=== PATIENT | male | born 1940 | race Caucasian/White ===

== ENCOUNTER 2016-11-30 11:48 | Observation (INO) | payer MEDICARE, OTHER ==
[2016-11-30 12:50] LABS: ALT (SGPT) 176 U/L (8-55); AST (SGOT) 144 U/L (5-34); Alkaline Phosphatase 178 U/L (40-150); Anion Gap 12 mmol/L (10-20); BUN (Urea Nitrogen) 21 mg/dL (8.4-25.7); Bilirubin, Total 4.4 mg/dL (0.2-1.2); Calc. Creatinine Clearance 0 mL/min (70-130); Calcium 8.1 mg/dL (7.8-10.44); Carbon Dioxide 22 mmol/L (23-31); Chloride 108 mmol/L (98-107); Estimated GFR-MDRD Greater than 90; Globulin 2.1 g/dL (2.4-3.5); Protein, Total 5.5 g/dL (5.8-8.1)
[2016-11-30 13:01] LABS: #Eosinphils 0.1 thou/uL (0.0-0.7); #Lymphocytes 0.1 thou/uL (1.20-3.40); #Monocytes 0.5 thou/uL (0.11-0.59); #Neutrophils 7.3 thou/uL (1.40-6.50); %Basophils 0.4 % (0.0-1.0); %Eosinophils 1.1 % (0.0-10.0); %Lymphocytes 1.7 % (21.0-51.0); %Monocytes 6.2 % (0.0-10.0); Hematocrit 40.1 % (42.0-52.0); Mean Platelet Volume 9.2 fL (7.4-10.4); Red Blood Cell (RBC) Count 4.79 mill/uL (4.70-6.10); White Blood Cell (WBC) Count 8.1 thou/uL (4.8-10.8)
--- NOTE | 2016-11-30 13:58 | RAD ---
RADIOGRAPH CHEST 2 VIEWS: Date: 11/30/16 Time: 1247 HOURS HISTORY: 76-year-old male with chest pain, weakness, nausea, and chills. COMPARISON: None. FINDINGS: There is a smooth bulge in the right mediastinal border. Thoracic aorta is tortuous. Cardiac size is normal. No pleural effusion or pneumothorax. Faint nodular interstitial densities scattered through out bilateral lung bruno, nonspecific. No consolidation or pulmonary edema. No pneumothorax or pleu ral effusion. IMPRESSION: 1. Widening of the right mediastinum. This is nonspecific. 2. Consider CT of the chest with contrast to rule out right mediastinal mass. MARK [] POS: [facility]
[2016-11-30 14:49] LABS: Bilirubin Large (Negative); Blood, Urine Negative (Negative); Glucose, Urine (Dipstick) Negative (Negative); Ketone, Urine Trace mg/dL (Negative); Nitrite Positive (Negative); Protein, Urine (Dipstick) 30 mg/dL (Neg-Trace)
[2016-11-30 14:50] LABS: Bacteria/HPF None Seen HPF (None Seen); Hyaline Casts/LPF 0-3 HYALINE CAST LPF (0-3 Hyaline); RBC/HPF 0-3 HPF (0-3); Squamous Epithelial 0-3 HPF (0-3); WBC/HPF 0-3 HPF (0-3)
[2016-11-30 14:53] LABS: Troponin I 0.033 ng/mL (< 0.028)
[2016-11-30] MEDS ORDERED: cefTRIAXone\\ROCEPHIN 2 GM VIAL ONE (15:54)
[2016-11-30] MEDS ORDERED: Sodium Chloride 0.9% 0 ML ONE (15:55)
[2016-11-30] MEDS ORDERED: Sodium Chloride 0.9% 100 ML ONE (15:58)
[2016-11-30] MEDS ORDERED: ISOVUE-370 76%-LOCM 1 ML ONE (16:33)
--- NOTE | 2016-11-30 16:39 | CT ---
CTA CHEST WITH 3D VOLUME RENDERING: Date: 11/30/16 INDICATION: Chest pain. No prior imaging for comparison. FINDINGS: There is diffuse heterogeneity of the contrast bolus, which does limit sensitivity evaluation and co uld obscure pulmonary emboli. Marked density reduction of the bilateral segmental and subsegmental p ulmonary arterial branches precludes assessment within these regions. There are mild bilateral subpleural patchy densities which may be on the basis of volume loss. Granu lomatous calcification present. There is atherosclerotic vascular disease. There is heterogeneity an d enlargement of the thyroid gland with punctate calcification. There is mild hiatal hernia. IMPRESSION: Limited evaluation due to heterogeneity of contrast bolus. There is no definite large central pulmon migue embolus. Evaluation otherwise limited. POS: [facility]
[2016-11-30 16:51] LABS: Troponin I 0.062 ng/mL (< 0.028)
--- NOTE | 2016-11-30 16:57 | ULT ---
GALLBLADDER ULTRASOUND: 11/30/16 INDICATION: Abdominal pain with elevation of liver function enzymes. FINDINGS: Prominent size of the hepatic volume at 20 cm in length. Portions of the liver are obscured by persi stent bowel limiting assessment. No ascites of significance visualized. No acute gallbladder pathology. Mensah's sign report is negative. Gallbladder wall measures less román n 3 mm, which is within normal limits in size. The common duct measures 3 mm, within normal limits. IMPRESSION: 1. Prominent sized liver with portions obscured by persistent bowel content. 2. No acute gallbladder pathology. POS: [facility]
[2016-11-30] MEDS ORDERED: cloNIDine HCl 0.1 MG TAB PO PRN (17:57)
[2016-11-30] MEDS ORDERED: Ondansetron HCl/PF 4 MG/2 ML Vial IVP PRN (17:57)
[2016-11-30] MEDS ORDERED: Sodium Chloride 0.9% 1,000 ML IV SCH (17:57)
[2016-11-30] MEDS ORDERED: Ondansetron ODT 4 MG TAB PO PRN (17:57)
[2016-11-30] MEDS ORDERED: Acetaminophen 500 MG TAB PO PRN (17:57)
[2016-11-30 18:19] VITALS: BMI 36.9
[2016-11-30] MEDS: Sodium Chloride 0.9% 1,000 ML IV SCH (19:53)
[2016-11-30] MEDS: Famotidine 20 MG TAB PO SCH (19:59)
--- NOTE | 2016-12-01 02:55 | HP ---
DATE OF ADMISSION: 11/30/2016 PRIMARY CARE PHYSICIAN: Formally, Dr. Mayer in [facility], also [facility] in [place], [place]. CHIEF COMPLAINT: General weakness and shaking chills. HISTORY OF PRESENT ILLNESS: This is a 76-year-old male who presents to [facility] complaining of 2-3 day history of increasing weakness, shaking chills, and dark urin e. The patient states he noticed symptoms within the last 48-72 hours with some associated nausea a nd chills. The patient denies any specific emesis, travel history, recent trauma, injury, or docume nted fever. The patient did state that approximately 2 weeks prior to this evaluation, he underwent a left ear procedure requiring surgical intervention and packing of the ear. The patient states he was given antibiotic drops and oral antibiotics after the surgical procedure. The patient denies a ny specific increased left ear discomfort, drainage, or epistaxis. The patient also admitted to [facility] without change to bowel regimen, diarrhea, or travel history. The patient admits a poor or al intake over the last 72 hours, drinking mainly coffee instead of water. The patient did note sarai kness to his urine, but no malodorous discharge. The patient denies any prior history of urinary tr act infections but does state he has prostate enlargement, placed on an alpha-el. The patient denies any known history of coronary artery disease or personal history of hypertension. In the [facility] department, the patient underwent general evaluation including chest imaging showing no acute infiltrate. CT angiogram of the chest was performed after initial D-dimer was elevated over 1 show ing a limited evaluation with contrast bolus; however, no definite large central pulmonary emboli no sally. The patient also underwent a general evaluation with abdominal ultrasound imaging after metabo lic screening showed transaminitis of unclear etiology. The sonographic evaluation showed a promine nt-sized liver without acute gallbladder pathology. The patient received aspirin 324 mg in addition to Rocephin 2 grams x1 dose after concern for a possible urinary tract infection. PAST MEDICAL HISTORY: 1. Gastroesophageal reflux disease. 2. Benign prostatic hyperplasia. PAST SURGICAL HISTORY: Status post left ear surgery. CURRENT MEDICATIONS: 1. Dexilant 30 mg p.o. b.i.d. 2. Naprosyn 500 mg p.o. b.i.d. 3. Alpha-el, type unknown. ALLERGIES: PRILOSEC. FAMILY HISTORY: No inheritable diseases per the patient report. SOCIAL HISTORY: , residing in the [facility]. No current alcohol, tobacco, or ill icit drug use. 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 A of [employer]. REVIEW OF SYSTEMS: The following complete review of systems was negative, unless otherwise mentione d in the HPI or below: Constitutional: Weight loss or gain, ability to conduct usual activities. Skin: Rash, itching. Eyes: Double vision, pain. ENT/Mouth: Nose bleeding, neck stiffness, pain, tenderness. Cardiovascular: Palpitations, dyspnea on exertion, orthopnea. Respiratory: Shortnes s of breath, wheezing, cough, hemoptysis, fever or night sweats. Gastrointestinal: Poor appetite, abdominal pain, heartburn, nausea, vomiting, constipation, or diarrhea. Genitourinary: Urgency, fr equency, dysuria, nocturia. Musculoskeletal: Pain, swelling. Neurologic/Psychiatric: Anxiety, de pression. Allergy/Immunologic: Skin rash, bleeding tendency. Otherwise negative except as stated per HPI. PHYSICAL EXAMINATION: VITAL SIGNS: On admission, blood pressure 125/61, pulse 74, respiratory rate 18, temperature 98.1 d egrees Fahrenheit, O2 saturation 98% on room air. GENERAL APPEARANCE: This is a 76-year-old male, alert and oriented x3, pleasant, conversa nt, in no acute distress. HEENT: Pupils are equal, round, and reactive to light and accommodation. Extraocular muscles are i ntact. No scleral icterus, no conjunctival injection. Nares patent. OP is clear. Teeth in fair r epair. NECK: Supple, no cervical adenopathy, no thyromegaly, no carotid bruits, no JVD appreciated. Cervi trenton spine with full active and passive range of motion. CHEST: Lungs are clear to auscultation bilaterally. CARDIOVASCULAR: S1, S2, without noted murmur. ABDOMEN: Rounded, soft, nontender, nondistended. Bowel sounds are positive in all four quadrants. There is no hepatosplenomegaly, no abdominal bruits, no rebound or guarding appreciated. EXTREMITIES: Warm and dry with fair turgor. No clubbing, cyanosis, or asymmetric edema appreciated . Pulses palpable distally at the dorsalis pedis, posterior tibial, and popliteal arteries bilatera lly. Capillary refill is less than 2 seconds. NEUROLOGIC: Cranial nerves II through XII are grossly intact. No focal or lateralizing signs appre ciated. PERTINENT LABORATORY AND X-RAY FINDINGS: Sodium 138, potassium 3.6, chloride 108, CO2 of 22, BUN 21 , creatinine 0.82, glucose 84, calcium 8.1, total bilirubin 4.4, AST 144, ALT 176, alkaline phosphat ase 178. Total CK 121, troponin I 0.033-0.062. Albumin 3.4. CBC showed a white blood cell count o f 8.1, hemoglobin 12.7, hematocrit 40.1, platelet count 108 with 91% neutrophilia. D-dimer 1.42. U rinalysis dated 11/30/2016 showed trace ketones, positive nitrite, small leukocyte esterase with 0-3 wbc's and rbc's per high-powered field. Portable chest x-ray dated 11/30/2016 showed questionable widening of the right mediastinum, nonspecific. No acute infiltrate identified. CT angiogram of th e chest dated 11/30/2016 showed limited evaluation due to contrast bolus timing with no definite lar ge central pulmonary emboli. Abdominal ultrasound dated 11/30 2016 showed prominent-sized liver wit hout acute process. No gallbladder pathology identified. EKG dated 11/30/2016 by my interpretation shows sinus mechanism with heart rates in the 80s, normal R-wave progression on the precordial lead s. Left axis deviation. No acute ST-T wave changes appreciated. ASSESSMENT AND PLAN: 1. Generalized weakness. The patient will be observed on the telemetry unit. Exact etiology is un clear. Continue symptomatic and supportive measures. Check TSH, magnesium, and BNP level. Initiat e normal saline at 125 mL per hour. 2. Question of urinary tract infection. Await final urine culture results. Initial management wit h Rocephin 2 grams IV x1 dose in the emergency room. 3. Transaminitis with hyperbilirubinemia. Etiology unclear. Check lipase level. Check acute hepa titis A, B, and C panel. Repeat LFTs in the a.m. 4. Elevated troponin I. We will continue to serially monitor troponin I. Check 2D transthoracic e chocardiogram in the a.m. Check BNP level. 5. Thrombocytopenia, mild. We will repeat platelet count in the a.m. Avoid anticoagulation. 6. Gastroesophageal reflux. Continue Pepcid 20 mg p.o. b.i.d. 7. Dehydration. See generalized weakness above. Continue intravenous normal saline as outlined pr eviously. 8. Prophylaxis. Sequential compression devices while in bed, Pepcid 20 mg p.o. b.i.d. 9. Code status is FULL. The surrogate medical decision maker is the patient's daughter.
[2016-12-01] MEDS: Sodium Chloride 0.9% 1,000 ML IV SCH ×3 (04:01→22:25)
[2016-12-01 06:05] LABS: ALT (SGPT) 135 U/L (8-55); AST (SGOT) 88 U/L (5-34); Alkaline Phosphatase 169 U/L (40-150); Anion Gap 10 mmol/L (10-20); BUN (Urea Nitrogen) 17 mg/dL (8.4-25.7); Bilirubin, Total 3.9 mg/dL (0.2-1.2); Calc. Creatinine Clearance 135 mL/min (70-130); Calcium 7.7 mg/dL (7.8-10.44); Carbon Dioxide 23 mmol/L (23-31); Chloride 108 mmol/L (98-107); Estimated GFR-MDRD 89; Globulin 2.1 g/dL (2.4-3.5); Protein, Total 5.3 g/dL (5.8-8.1)
[2016-12-01 06:12] LABS: Band 8 % (5-11); Neutrophil 62 % (42-75); Red Blood Cell (RBC) Count 4.56 mill/uL (4.70-6.10); White Blood Cell (WBC) Count 4.7 thou/uL (4.8-10.8)
[2016-12-01] MEDS ORDERED: FLU VACC TS2017-18 (>65YR) 0.5 ML SYRINGE IM ONE (09:00)
[2016-12-01] MEDS: Famotidine 20 MG TAB PO SCH ×2 (09:57→20:11)
[2016-12-01] MEDS ORDERED: Aspirin 325 MG TAB PO SCH (10:45)
--- NOTE | 2016-12-01 11:06 | PDOC.PN ---
- Subjective Encounter Start Date: 12/01/16 Encounter Start Time: 10:45 Subjective: Feels ok overall. No fever or chills. No CP, abd pain. Ate breakfast withou -: difficulty. States urine remains dark. - Objective Resuscitation Status: Resuscitation Status FULL:Full Resuscitation MAR Reviewed: Yes Vital Signs & Weight: Vital Signs (12 hours) Temp Pulse Resp BP BP Pulse Ox 12/01/16 08:15 98.5 F 68 16 12/01/16 07:25 98.5 F 68 16 146/66 H 97 12/01/16 04:00 74 18 124/57 L 98 Weight Weight 272 lb 8 oz I&O: 11/30/16 12/01/16 12/02/16 06:59 06:59 06:59 Intake Total 300 Output Total 0 Balance 0 300 Result Diagrams: 12/01/16 05:19 12/01/16 05:19 Additional Labs: Laboratory Tests 11/30/16 11/30/16 11/30/16 12:15 12:15 12:22 Plt Count 108 L Magnesium AST 144 H ALT 176 H Troponin I 0.033 H B-Natriuretic Peptide TSH 3rd Generation 11/30/16 11/30/16 11/30/16 16:13 19:13 19:13 Plt Count Magnesium AST ALT Troponin I 0.062 H B-Natriuretic Peptide 116.1 H TSH 3rd Generation 0.6818 11/30/16 12/01/16 12/01/16 19:13 05:19 05:19 Plt Count Magnesium 1.7 AST 88 H ALT 135 H Troponin I 0.060 H B-Natriuretic Peptide TSH 3rd Generation Radiology Reviewed by me: Yes (ABD sono - no CBD obstruction, enlarged liver) EKG Reviewed by me: Yes (Tele - SR) Phys Exam - Physical Examination Constitutional: NAD HEENT: PERRLA, oral pharynx no lesions Neck: no JVD, supple Respiratory: no wheezing, clear to auscultation bilateral Cardiovascular: RRR Gastrointestinal: soft, non-tender, no distention, positive bowel sounds Musculoskeletal: no edema, pulses present Neurological: normal sensation, moves all 4 limbs Psychiatric: A&O x 3 Skin: normal turgor, cap refill <2 seconds Dx/Plan (1) Transaminitis Code(s): R74.0 - NONSPEC ELEV OF LEVELS OF TRANSAMNS & LACTIC ACID DEHYDRGNSE Status: Acute Comment: Etiology unclear, check CT abd/pelvis, Hep A/B/C panel , lipase and CA 19-9, repeat LFT's in am (2) Elevated troponin I level Code(s): R74.8 - ABNORMAL LEVELS OF OTHER SERUM ENZYMES Status: Acute Comment: mild elevation, will likely need heart cath in near future, currently asymptomatic, 2D echo pending (3) Hypocalcemia Code(s): E83.51 - HYPOCALCEMIA Status: Chronic Comment: Continue Calcium and Vit D supplementation (4) Thrombocytopenia Code(s): D69.6 - THROMBOCYTOPENIA, UNSPECIFIED Status: Acute Comment: ? etiology, ? iatrogenic, hold Naproxen and Uroxatral, repeat platelets in am (5) Normocytic anemia Code(s): D64.9 - ANEMIA, UNSPECIFIED Status: Chronic Comment: check stool guaiac, repeat H/H in am, no evidence of active blood loss (6) UTI (urinary tract infection) Status: Acute Qualifiers: Urinary tract infection type: acute cystitis Comment: Continue Rocephin, Ucx pending - Plan plan discussed w/ family, continue antibiotics, out of bed/ambulate, DVT proph w /SCDs Stable overall -: Check CT abd/pelvis today to assess biliary tree and portal system -: Decrease IVF's 100ml/h -: 2D echo pending -: AM lab: CMP, CBC * .
--- NOTE | 2016-12-01 14:57 | CT ---
CT ABDOMEN WITH IV CONTRAST CT PELVIS WITH IV CONTRAST: Date: 12/01/16 HISTORY: Transaminitis, inflamed liver with nausea and vomiting. Question portal vein thrombosis. FINDINGS: The spleen is enlarged, with greatest AP dimension of 18.4 cm. Craniocaudal dimension is 14.0 cm. While the venous structures are not well opacified due to phase of enhancement, the visualized sussy l veins, as well as splenic vein, do appear to enhance without findings to suggest thrombus within t he visualized portal veins or splenic vein. Vascular calcifications seen in the coronary arteries, as well as involving the abdominal aorta and iliac arteries. There is contrast in the distal esophagus, probably related to gastroesophageal reflux. There is a s mall hiatal hernia present. There are very tiny bilateral pleural effusions versus pleural thickening with minimal bibasilar ate lectasis present. The liver, pancreas, bilateral adrenal glands, kidneys, and urinary bladder demonstrate a normal CT appearance for phase of enhancement. There is colonic diverticulosis. There is a duodenal diverticulum involving the third portion of the duodenum. The appendix is visualized and normal in caliber. There is no free fluid, fluid collection, or lymphadenopathy seen in the abdomen or pelvis. There is minimal Grade I anterolisthesis of L5 on S1. There is a lytic and sclerotic lesion seen wit hin the right iliac bone, with findings most compatible with a low grade chondroid lesion. There is a small bone island in the sacrum adjacent to this region. IMPRESSION: 1. Splenomegaly. While the venous structures are not well opacified, no definite filling defect is seen within the splenic or portal veins to suggest a thrombus. 2. Small hiatal hernia with contrast in the distal esophagus likely attributable to gastroesophagea l reflux. 3. Trace pleural effusions bilaterally. 4. No pancreatic or peripancreatic inflammatory stranding is seen. 5. No hepatic lesion is identified. POS: [facility]
[2016-12-01] MEDS ORDERED: cefTRIAXone\\ROCEPHIN 1 GM in Sodium Chloride 0.9% 100 ML IVPB SCH (16:00)
[2016-12-01] MEDS ORDERED: Iopamidol 370 76% 100 ML VIAL ONE (16:09)
[2016-12-01] MEDS ORDERED: cefTRIAXone\\ROCEPHIN 1 GM, Admixture Fee 1 EACH in Sodium Chloride 0.9% 100 ML IVPB SCH (17:00)
[2016-12-02 05:06] LABS: Band 1 % (5-11); Hematocrit 36.6 % (42.0-52.0); Mean Platelet Volume 9.4 fL (7.4-10.4); Neutrophil 70 % (42-75); Reactive Lymphocytes 1 % (0-10); Red Blood Cell (RBC) Count 4.42 mill/uL (4.70-6.10); White Blood Cell (WBC) Count 4.1 thou/uL (4.8-10.8)
[2016-12-02 06:54] LABS: ALT (SGPT) 100 U/L (8-55); AST (SGOT) 55 U/L (5-34); Alkaline Phosphatase 190 U/L (40-150); Anion Gap 9 mmol/L (10-20); BUN (Urea Nitrogen) 11 mg/dL (8.4-25.7); Bilirubin, Total 1.8 mg/dL (0.2-1.2); Calc. Creatinine Clearance 142 mL/min (70-130); Calcium 7.2 mg/dL (7.8-10.44); Carbon Dioxide 24 mmol/L (23-31); Chloride 109 mmol/L (98-107); Estimated GFR-MDRD Greater than 90; Globulin 2.3 g/dL (2.4-3.5); Protein, Total 5.4 g/dL (5.8-8.1)
[2016-12-02 08:10] VITALS: BP 174/78
[2016-12-02 08:12] VITALS: TEMP 98.1
[2016-12-02] MEDS ORDERED: Aspirin 325 MG TAB PO SCH (09:00)
[2016-12-02] MEDS: Famotidine 20 MG TAB PO SCH (09:32)
[2016-12-02] MEDS: Sodium Chloride 0.9% 1,000 ML IV SCH (09:34)
--- NOTE | 2016-12-02 15:17 | DIS ---
DATE OF ADMISSION: 11/30/2016 DATE OF DISCHARGE: 12/02/2016 DISCHARGE DIAGNOSES: 1. Generalized weakness, improved. 2. Transaminitis, etiology unclear, improving. 3. Hypocalcemia, mild. 4. Thrombocytopenia, likely secondary to naproxen use. 5. Normocytic anemia, mild, stable. 6. Nausea and vomiting, resolved. 7. Elevated troponin I without evidence of acute coronary syndrome. CONSULTATIONS: None. PERTINENT LAB AND X-RAY FINDINGS: Calcium ranged between 7.2-8.1. Magnesium level 1.7, total bilir ubin ranged between 1.8-4.4, AST ranged between 55-144, ALT ranged between 100-176, alkaline phospha tase ranged between 169-190. Total CK 121, troponin I ranged between 0.033-0.062. BNP 116, albumin 3.4, lipase 17. CA 19-9 antigen 60. TSH 0.68. CBC showed a white blood cell count ranging betwee n 4.1-8.1, hemoglobin ranged between 11.9-12.7, MCV 83, platelet count ranged between 92-108. Hepat itis A, B, and C panel nonreactive on 12/01/2016. Stool Hemoccult negative x1 on 12/01/2016. Dulce ble chest x-ray dated 11/30/2016 showed questionable widening of the right mediastinum, nonspecific. CT angiogram of the chest dated 11/30/2016 showed no evidence for definite large central pulmonary embolus. Abdominal ultrasound dated 11/30/2016 showed prominent sized liver. CT of the abdomen an d pelvis with contrast showed splenomegaly without evidence of portal vein thrombosis. Small hiatal hernia. No pancreatic or peripancreatic inflammatory stranding. No hepatic lesion noted. A 2D tr ansthoracic echocardiogram pending. HOSPITAL COURSE: The patient was initially placed in observation status after presenting with gener alized weakness and chills. The patient underwent extensive evaluation including multiple imaging m odalities and screening metabolic survey. The patient with multiple metabolic derangements on labor atory evaluation including transaminitis of unclear etiology. Initial suspicion was for iatrogenic influence with the use of Uroxatral and long-term naproxen therapy. The patient was discontinued on these medications and monitored for improvement. Serial LFT monitoring showed overall improving tr end with discontinuation of these agents and supportive measures including IV fluids. The patient u nderwent extensive evaluation of the biliary system without evidence of common bile duct obstruction . The patient did undergo CA 19-9 antigen evaluation showing mild elevation at 60. No specific mireles creatic pathology was noted on CT imaging as stated previously. The patient was also noted with mil d elevated troponin I, undergoing evaluation including CT angiogram of the chest as well as CT of th e abdomen and pelvis ruling out thrombosis. The patient exhibited no specific chest pain or EKG mariaa nges consistent with acute coronary syndrome. Telemetry monitoring showed a sinus mechanism without acute arrhythmia or dysrhythmia. A 2D transthoracic echocardiogram was performed with final interp retation pending at the time of this dictation. The patient continued to clinically improve with wild pportive measures including IV fluids and antiemetics. No specific identifiable pathology was noted to explain the transaminitis other than iatrogenic influence. Current recommendations are for outp atient followup with his GI specialist for surveillance and consideration of repeat endoscopy. Over all, the patient remained clinically stable throughout the hospital course and ready for discharge o n . DISCHARGE MEDICATIONS: 1. Calcium carbonate 1000 mg p.o. b.i.d. 2. Vitamin D3 1000 units p.o. daily. 3. Dexilant 60 mg p.o. daily. FOLLOWUP: The patient to establish with a new primary care provider, Dr. Baldev Calderon within 7 day s of discharge. Patient will also follow with Dr. Joel Holm with [facility] and to call his offic e for appointment time and date. CONDITION ON DISCHARGE: Stable. ACTIVITY: Ad malachi. SPECIAL INSTRUCTIONS: Recommend repeat LFTs in 7 days. Recommend discontinuation of Uroxatral and naproxen. The patient may need additional endoscopy on followup. DIET: Heart healthy. CODE STATUS: FULL. DISPOSITION: Home, 12/02/2016.
--- OUTSIDE RECORDS SUMMARY | 2016-12-07 04:53 | XMS | Clinical Summary ---
:1940 Author Organization [facility] Address [address] [place] [address] Phone Care Team Providers Name Role Phone , Primary Care Provider Unavailable Allergies Not on File Current Medications Not on file Active Problems Not on file Social History Tobacco Use Types Packs/Day Years Used Date Never Assessed Sex Assigned at Date Recorded Not on file Last Filed Vital Signs Not on file Plan of Treatment Not on file Results Not on filefrom Last 3 Months
--- OUTSIDE RECORDS SUMMARY | 2016-12-07 10:13 | XMS | Clinical Summary ---
:1940 Author Organization [facility] Address [address] [place] [address] Phone Care Team Providers Name Role Phone [...]
== END 2016-12-02 11:41 | disposition home or self-care (01) ==
LOC: ERS 11:48 → 2SW 15:49 → ERS 17:39
PROVIDERS: ADMIT Family Medicine; ATTEND Family Medicine
DX: R53.1 Weakness (principal); R11.2 Nausea with vomiting, unspecified; R74.0 Nonspecific elevation of levels of transaminase and lactic acid dehydrogenase [LDH]; R79.89 Other specified abnormal findings of blood chemistry; E83.51 Hypocalcemia; D69.6 Thrombocytopenia, unspecified; K21.9 Gastro-esophageal reflux disease without esophagitis; D64.9 Anemia, unspecified; Z88.8 Allergy status to other drugs, medicaments and biological substances; Z79.899 Other long term (current) drug therapy; Z98.890 Other specified postprocedural states
CPT/HCPCS: 71020; 71275; 74177; 76705; 80053 ×2; 80074; 82274; 82550; 82553; 83690; 83735; 83880; 84484 ×3; 85007 ×2; 85027 ×2; 85379; 86301; 93005; 93306; 96361 ×3; 96365; 96366; 99285; G0378; 36415; 81003; 81015; 84443; 85025; 90471; 90682; G0008; J0696; J7050; Q2036